=== PATIENT | male | born 1950 | race Caucasian/White ===

== ENCOUNTER → 2022-10-04 | Outpatient (CLI) | payer MEDICARE, OTHER ==
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
== END | disposition home or self-care (01) ==
LOC: RADMRIMAIN 06:29
PROVIDERS: ATTEND Orthopaedic Surgery
DX: S63.502A Unspecified sprain of left wrist, initial encounter (principal); M65.822 Other synovitis and tenosynovitis, left upper arm; M18.12 Unilateral primary osteoarthritis of first carpometacarpal joint, left hand; M25.432 Effusion, left wrist

== ENCOUNTER → 2022-10-30 | Outpatient (CLI) | payer MEDICARE, OTHER ==
[2022-10-30 15:51] LABS: Rheumatoid Factor, Qnt <10 IU/mL (0-15)
[2022-10-30 21:03] LABS: Cyclic Citrull Pep IgG Unit <1.5 U/mL; Cyclic Citrullinated Pep IgG NEGATIVE (NEGATIVE)
== END | disposition home or self-care (01) ==
LOC: LABWHC1 11:24
PROVIDERS: ATTEND Orthopaedic Surgery
DX: M25.332 Other instability, left wrist (principal)
CPT/HCPCS: 36415; 85652; 86038; 86039; 86140; 86200; 86431